=== PATIENT | female | born 1990 | race Caucasian/White ===

== ENCOUNTER 2018-05-13 17:28 | Emergency (ER) | payer BC ==
[~2018-05-13] VITALS: Ht 170.2 cm; Wt 68.0 kg
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
[2018-05-13] MEDS ORDERED: LIDOCAINE 1%-EPI 1:100,000 20 ML VIAL ONE (17:53)
[2018-05-13] MEDS ORDERED: TDAP [DIPH/PERTUSSIS/TET] 0.5 ML VIAL IM ONE ×2 (18:00→18:13)
[2018-05-13] MEDS ORDERED: LIDOCAINE 1%-EPI 1:100,000 20 ML VIAL TP ONE (18:00)
--- NOTE | 2018-05-13 19:20 | NUR ---
Pam mcfarland in [facility] - 05/13/18 at 1924 by MOHIT PT APPEARS TO BE RESTING COMFORTABLY WITH NO S/S OF N/V.
[2018-05-13 19:22] VITALS: BP 114/71
== END 2018-05-13 19:22 | disposition home or self-care (01) ==
LOC: ER 17:30
DX: S81.812A Laceration without foreign body, left lower leg, initial encounter (principal); W01.10XA Fall on same level from slipping, tripping and stumbling with subsequent striking against unspecified object, initial encounter; Y93.39 Activity, other involving climbing, rappelling and jumping off; Y92.39 Other specified sports and athletic area as the place of occurrence of the external cause; Y99.8 Other external cause status
CPT/HCPCS: 13121; 90471; 90715; 99285; A4606; A6402 ×2; J3490; Z7610